=== PATIENT | female | born 1940 | race Caucasian/White ===

== ENCOUNTER 2021-03-22 13:18 | Outpatient (CLI) | payer OTHER | END 2021-03-22 13:26 | disposition home or self-care (01) | LOC: MRI 13:18 | PROVIDERS: ATTEND General Practice | DX: M86.071 Acute hematogenous osteomyelitis, right ankle and foot (principal) | CPT/HCPCS: 73718 ==

== ENCOUNTER 2021-09-26 11:50 | Outpatient (CLI) | payer OTHER | END 2021-09-26 12:44 | disposition home or self-care (01) | LOC: MRI 11:50 | PROVIDERS: ATTEND General Practice | DX: M86.8X7 Other osteomyelitis, ankle and foot (principal); M79.671 Pain in right foot | CPT/HCPCS: 73718 ==